=== PATIENT | female | born 1965 | race Caucasian/White ===

== ENCOUNTER → 2017-10-16 | Outpatient (CLI) | payer OTHER ==
--- NOTE | 2017-10-16 12:34 | PCVCIMAG ---
APPROVED REPORT Study performed: 10/16/2017 11:09:53 Exam: Stress Echocardiogram Indication: Dyspnea, Palpitations, PVCs Patient Location: Echo lab Stress Nurse: Karol Villatoro RN Status: routine Ht: 5 ft 4 in HR: 69 bpm BP: 132/88 mmHg Rhythm: NSR Procedure The patient underwent an Exercise Stress Test using the Leandro Protocol. Blood pressure, heart rate, and EKG were monitored. An Echocardiogram was performed by pathological technician in four stages in quad fashion. At peak stress, four selected images were obtained and placed side by side with resting images for comparison. Stress Test Details Stress Test: Exercise stress testing was performed using a Leandro protocol. HR Resting HR: 69 bpmMax Heart Rate (APMHR): 170 bpm Max HR Achieved: 151 bpmTarget HR (85% APMHR): 144 bpm % of APMHR: 88 Recovery HR: 95 bpm HR response to stress: Normal HR response to stress BP Resting BP: 132/88 mmHg Max BP: 174/80 mmHg Recovery BP: 136/80 mmHg ECG Resting ECG: Sinus Rhythm w/ PVCs Stress ECG: Sinus Rhythm w/ PVCs ST Change: Normal Arrhythmia: isolated PVCs Recovery ECG: Sinus Rhythm Recovery ST Change: Normal Recovery Arrhythmia: PVCs Clinical Reason for Termination: Maximal effort, Dyspnea Stress Symptoms: Dyspnea Exercise duration: 5 min sec Highest Stage Achieved: Stage 1: 1.7 mph at 10% grade. Exercise capacity: 7 METs Overall Exercise Capacity for Age: Poor Scale: Sedentary Angina Score: None Pre-Stress Echo The resting Echocardiogram showed normal left ventricular contractility with an estimated Ejection Fraction of about >55%. Normal wall motion in all segments on baseline images. Post-Stress Echo The stress Echocardiogram showed normal left ventricular contractility with an estimated Ejection Fraction of about 65%. Normal augmentation of wall motion in all segments on post stress images. Clinical No clinical or ECG evidence for ischemia. Conclusion Clinical Response: Non-ischemic Exercise Capacity: Below Average Stress ECG Response: Non-ischemic Stress Echo Images: Non-ischemic The left ventricle is normal in size and wall thickness in both the rest and stress images. Other Information Study Quality: Adequate <Conclusion> The left ventricle is normal in size and wall thickness in both the rest and stress images.
== END | disposition home or self-care (01) ==
LOC: PCVCIMAG 15:42
PROVIDERS: ATTEND Internal Medicine Cardiovascular Disease
DX: R00.2 Palpitations (principal); R06.09 Other forms of dyspnea; I49.3 Ventricular premature depolarization
CPT/HCPCS: 93325; 93351